=== PATIENT | male | born 1955 | race Caucasian/White ===

== ENCOUNTER → 2019-10-18 | Outpatient (CLI) | payer OTHER, BC ==
[~2019-10-18] VITALS: Ht 180.3 cm; Wt 90.3 kg
[~2019-10-18] MED LIST: AMLODIPINE BESY10 MG PO; HYDROCHLOROTH12.5 M1 PO; LIPITOR 20 MG T20 M1 PO; MONOPRIL20 MG PO; PROSCAR 5MG TABL5 M1 PO; UROXATRAL PO
[2019-10-18 09:39] LABS: HEMATOCRIT 43.3 % (42.0-52.0); HEMOGLOBIN 14.7 gm/dL (14.0-18.0); MCH 30.1 pg (26.0-34.0); MCHC 33.8 g/dL (28.0-37.0); MCV 89.1 fL (80.0-100.0); RBC 4.86 mil/uL (4.50-6.00); RDW 13.3 % (10.5-14.5); WBC 5.2 thou/uL (4.0-11.0)
[2019-10-18 09:46] LABS: URINE BILIRUBIN NEGATIVE (Negative); URINE BLOOD NEGATIVE (Negative); URINE CLARITY CLEAR; URINE COLOR YELLOW; URINE GLUCOSE-RANDOM* NEGATIVE (Negative); URINE KETONES NEGATIVE (Negative); URINE NITRITE-REFLEX NEGATIVE (Negative); URINE PROTEIN (DIPSTICK) NEGATIVE (Negative); URINE SPECIFIC GRAVITY <= 1.005 (1.005-1.035); URINE UROBILINOGEN 0.2 E.U./dl (0.2-1.0)
[2019-10-18 09:46] LABS: ALBUMIN 4.1 g/dL (3.4-5.0); CALCIUM 9.1 mg/dL (8.5-10.1); CREATININE 0.9 mg/dL (0.7-1.3); POTASSIUM 4.3 mmol/L (3.5-5.1)
[2019-10-18 10:36] LABS: URINE LEUKOCYTES-REFLEX 1+ (Negative)
[2019-10-18 11:31] LABS: CASTS None Seen /LPF (None Seen); CRYSTALS None Seen /LPF (None Seen); SQUAMOUS 0-3 Few /LPF (0-3)
[2019-10-18 11:32] LABS: BACTERIA-REFLEX 1-9 Few /HPF (None Seen); URINE RBC None Seen /HPF (0-2); URINE WBC-REFLEX 6-15 Few /HPF (0-5)
--- NOTE | 2019-10-19 07:56 | EKG ---
[facility] [place] [address] ELECTROCARDIOGRAM REPORT Name: JANIYARUI Darryl Room #: PRE IN ..#: [id number] Admission: Attend Phys: Thom Leiva MD Discharge: Date of : 53 Report #: [id number] THIS REPORT FOR: cc: FAM - Family physician unknown FAM - Family physician unknown Rashad Rashid MD ~ THIS REPORT FOR: //name// [facility] Test Date: 2019-10-18 Test Time: 09:21:25 Pat Name: RUI DENSON Department: Room: Gender: [employer] Installation [employer]: Martín BARKSDALE : 1955 Requested By: Thom Leiva Order Number: [id number] MD: Rashad Rashid Measurements Intervals [place] Rate: 63 P: 47 MA: 199 QRS: -17 QRSD: 120 T: 9 QT: 452 QTc: 463 Interpretive Statements Sinus rhythm Left ventricular hypertrophy No previous ECG available for comparison Electronically Signed On 10-19-2019 7:55:47 CDT by Rashad Rashid [email or web address] <ELECTRONICALLY SIGNED> By: Rashad Rashid MD 10/19/19 0755 0 0 Rashad Rashid MD /DON
== END ==
LOC: PAC 08:00 → PRE 10-23 06:24 → EDSTATUS 10-23 12:30 → PRE 10-23 15:16 → TBA 10-23 16:55
PROVIDERS: ATTEND Orthopaedic Surgery Sports Medicine
DX: Z01.812 Encounter for preprocedural laboratory examination (principal); Z11.59 Encounter for screening for other viral diseases; I51.7 Cardiomegaly